=== PATIENT | male | born 1965 | race African-American/Black ===

== ENCOUNTER 2020-06-20 14:13 | Emergency (ER) | payer OTHER, SELFPAY ==
[~2020-06-20] VITALS: Ht 177.8 cm; Wt 63.5 kg
[2020-06-20 14:13] VITALS: BP_SYST 116
--- NOTE | 2020-06-20 14:13 | NUR ---
Placed in room 7. Placed on cardiac exercise specialist, blood pressure machine and pulse oximeter. To gown for exam. Side rails up. Report given to THONG Thomson.
--- NOTE | 2020-06-20 14:15 | NUR ---
Patient arrived in the ED c/o shortness of breath and chest pain that started today. Denied any chest pain. Denied any fevers, chills, nausea or vomiting. Patient is alert and oriented x4, respirations even and unlabored, speaking in full sentences, and ambulating with a steady gait. VSS, pain level 8/10. Informed of the approximate wait time. Instructed to notify ED staff for any changes in condition or worsening of symptoms while waiting to be seen by an ED provider. Patient verbalized understanding.
--- NOTE | 2020-06-20 14:25 | NUR ---
ER Dr. Cunningham at bedside examining patient.
[2020-06-20] MEDS ORDERED: KETOROLAC TROMETHAMINE 30 MG VIAL IVP ONE (14:30)
[2020-06-20] MEDS ORDERED: MAG-55 PO (14:37)
[2020-06-20] MEDS ORDERED: OLAN10TA3 PO (14:37)
[2020-06-20] MEDS ORDERED: LORA-258 PO (14:37)
[2020-06-20] MEDS ORDERED: [UNRECOGNIZED DRUG - CODE] TD (14:37)
[2020-06-20] MEDS ORDERED: IRON1TAB8 PO (14:37)
[2020-06-20] MEDS ORDERED: ZOLP5TAB2 PO (14:37)
[2020-06-20] MEDS ORDERED: CITA10TA17 PO (14:37)
[2020-06-20] MEDS ORDERED: IPRA3AMP9 NEB (14:37)
[2020-06-20] MEDS ORDERED: ACET325T39 PO (14:37)
[2020-06-20] MEDS ORDERED: MAGN24003 PO (14:37)
--- NOTE | 2020-06-20 14:37 | NUR ---
Medication reconciliation completed with information provided by Mandeep Goncalves. Any prior medication reconciliation on file was reviewed and corrected.
[2020-06-20 14:41] LABS: BASOPHILS % (AUTO) 0.8 % (0.0-2.0); EOSINOPHILS % (AUTO) 0.9 % (0.0-4.0); LYMPHOCYTES # (AUTO) 1.4 K/uL (1.0-5.5); LYMPHOCYTES % (AUTO) 42.8 % (20.5-51.5); MEAN CORPUSCULAR HEMOGLOBIN 34 pg (27-31); MEAN CORPUSCULAR HGB CONC 34 % (32-36); MEAN CORPUSCULAR VOLUME 101 fL (79.0-98.0); MONOCYTES # (AUTO) 0.4 K/uL (0.0-1.0); MONOCYTES % (AUTO) 10.9 % (1.7-9.3); NEUTROPHILS # (AUTO) 1.5 K/uL (1.8-7.7); NEUTROPHILS % (AUTO) 44.6 % (40.0-70.0); PLATELET COUNT (AUTO) 347 K/uL (130-430); RED BLOOD CELL COUNT(AUTO) 3.86 MIL/uL (4.2-6.2); RED CELL DISTRIBUTION WIDTH 13.3 % (9.0-15.0); WHITE BLOOD COUNT (AUTO) 3.4 K/uL (4.8-10.8)
[2020-06-20 14:54] LABS: CALCIUM 8.6 mg/dL (8.4-11.0); CREATININE 1.36 mg/dL (0.55-1.30); POTASSIUM 4.7 mmol/L (3.5-5.1)
[2020-06-20 15:00] LABS: ALBUMIN 3.3 g/dL (3.4-4.8); TOTAL BILIRUBIN 0.3 mg/dL (0.0-1.0)
--- NOTE | 2020-06-20 15:25 | NUR ---
SW AT BEDSIDE.
--- NOTE | 2020-06-20 15:29 | NUR ---
SS NOTES: SPECIAL NEEDS NANNY was referred by ED to see pt for homelessness and psych. SPECIAL NEEDS NANNY met with patient at bedside. Pt states he has been at [facility] voluntarily for 2 days now. Pt states he is currently experiencing depression, anxiety and hearing "loud screaming voices". Pt states he is currently suicidal but has a vague plan. Pt states his depression is triggered by the of his father and his homelessness. Pt states he was at an unknown correction in [place] and was picked up to be housed at a halfway. He was at a halfway for 6 months and left 2 months ago due "to the people there". Pt is alert and oriented. Pt's behavior was calm and cooperative. SPECIAL NEEDS NANNY phoned [facility] and spoke with Melly BENITO who confirmed pt to be there voluntarily and informed her that if pt gets cleared and discharged, pt might go back to [facility] voluntarily, which Melly states they will be able to take her back if bed is still available. SPECIAL NEEDS NANNY provided pt with mental health resources. RN and ED MD updated.
--- NOTE | 2020-06-20 16:00 | NUR ---
REPORT GIVEN TO THONG SANCHES OF [facility] AT [phone].
[2020-06-20 16:49] VITALS: BP_SYST 116
--- NOTE | 2020-06-20 16:50 | NUR ---
Patient given written and verbal discharge instructions and verbalizes understanding. ER MD discussed with patient the results and treatment provided. Patient in stable condition. ID arm band removed. IV catheter removed intact and dressing applied, no active bleeding. Rx of Motrin given. Patient educated on pain management and to follow up with PMD. Pain Scale 0/10. Opportunity for questions provided and answered. Medication side effect fact sheet provided.
== END 2020-06-20 16:49 ==
LOC: SED 14:13
DX: R07.89 Other chest pain (principal); F17.200 Nicotine dependence, unspecified, uncomplicated; Z86.2 Personal history of diseases of the blood and blood-forming organs and certain disorders involving the immune mechanism; Z79.899 Other long term (current) drug therapy
CPT/HCPCS: 36415; 71045; 80053; 83880; 84484; 85025; 93005; 96374; 99285; J1885